=== PATIENT | male | born 1955 | race Two or more races ===

== ENCOUNTER 2022-05-01 10:14 | Inpatient (IN) | payer OTHER ==
[~2022-05-01] VITALS: Ht 172.7 cm; Wt 95.3 kg
[2022-05-01] MEDS ORDERED: GLUMETZA500 MG PO (12:22)
[2022-05-01] MEDS ORDERED: HYZAAR 100-251 EACH PO (12:22)
[2022-05-01] MEDS ORDERED: HORIZANT300 MG PO (12:22)
[2022-05-01] MEDS ORDERED: SIMVAST PO (12:23)
[2022-05-04] MEDS ORDERED: COLACE100 MG PO (10:45)
[2022-05-04] MEDS ORDERED: NEURONTIN800 MG PO (10:46)
[2022-05-04] MEDS ORDERED: MEDROLPACK PO (10:46)
[2022-05-04] MEDS ORDERED: AMOX-CLAV 875-1 EAC1 PO (10:46)
[2022-05-04] MEDS ORDERED: PERCOCET 5-3251 EACH PO (10:46)
== END 2022-05-06 10:14 | disposition home or self-care (01) | DRG 455 ==
LOC: PED 05-04 06:55 → O/R 05-04 06:55 → SURG 05-04 11:00 → PED 05-04 18:54
PROVIDERS: ADMIT Orthopaedic Surgery Orthopaedic Surgery of the Spine; ATTEND Orthopaedic Surgery Orthopaedic Surgery of the Spine
PROC: 0SG1071 Fusion of 2 or more Lumbar Vertebral Joints with Autologous Tissue Substitute, Posterior Approach, Posterior Column, Open Approach (ICD-10-PCS; 2022-05-04)
PROC: 0ST20ZZ Resection of Lumbar Vertebral Disc, Open Approach (ICD-10-PCS; 2022-05-04)
PROC: 07DR0ZZ Extraction of Iliac Bone Marrow, Open Approach (ICD-10-PCS; 2022-05-04)
PROC: XRGC0R7 Fusion of 2 or more Lumbar Vertebral Joints using Custom-Made Anatomically Designed Interbody Fusion Device, Open Approach, New Technology Group 7 (ICD-10-PCS; principal; 2022-05-04 14:30)
DX: M48.062 Spinal stenosis, lumbar region with neurogenic claudication (principal); M41.56 Other secondary scoliosis, lumbar region; E11.9 Type 2 diabetes mellitus without complications; I10 Essential (primary) hypertension